=== PATIENT | male | born 1940 | race Caucasian/White ===

== ENCOUNTER 2019-02-20 15:37 | Inpatient (IN) | payer OTHER ==
[~2019-02-20] VITALS: Ht 190.5 cm; Wt 110.9 kg
[~2019-02-20 15:37] MED LIST: PRED5 PO; Triamcinolone A15 G3 TOP; VOLTAREN100 GM TOP
[2019-02-20 16:33] LABS: BASOPHILS ABSOLUTE AUTO 0.18 K/mm3 (0.00-0.23); BASOPHILS PERCENT AUTO 1 % (0-2); EOSINOPHILS ABSOLUTE AUTO 4.54 K/mm3 (0.00-0.68); EOSINOPHILS PERCENT AUTO 28 % (0-6); Hemoglobin 15.5 g/dL (13.5-17.5); IMMATURE GRAN ABSOLUTE AUTO 0.17 K/mm3 (0.00-0.10); IMMATURE GRAN PERCENT AUTO 1 % (0-1); LYMPHOCYTES ABSOLUTE AUTO 1.41 K/mm3 (0.84-5.20); LYMPHOCYTES PERCENT AUTO 9 % (21-46); MONOCYTES ABSOLUTE AUTO 0.98 K/mm3 (0.16-1.47); MONOCYTES PERCENT AUTO 6 % (4-13); Mean Corpuscular Volume 91 fL (80-100); Mean Platelet Volume 10.5 fL (9.1-12.4); NEUTROPHILS ABSOLUTE AUTO 9.19 K/mm3 (1.96-9.15); NEUTROPHILS PERCENT AUTO 56 % (41-73); Platelet Count 240 K/mm3 (150-400); RDW Coefficient Variation 13.1 % (11.7-14.2); RDW Standard Deviation 43.8 fL (35.1-46.3); Red Blood Cell Count 5.16 M/mm3 (4.30-5.90); White Blood Cell Count 16.47 K/mm3 (4.00-11.30)
[2019-02-20 17:02] LABS: Alanine Aminotransfer (ALT/SGP 43 U/L (12-78); Albumin, Blood 3.6 g/dL (3.4-5.0); Albumin/Globulin Ratio 1.1 (0.8-1.8); Alk Phos 88 U/L (50-136); Anion Gap 5 mmol/L (6-16); Aspartate Aminotrans (AST/SGOT 16 U/L (12-37); Bilirubin, Total 0.5 mg/dL (0.1-1.0); Blood Urea Nitrogen 20 mg/dL (8-24); Bun/Creatinine Ratio 25.6 (12.0-20.0); CO2, Blood 27 mmol/L (21-32); Calcium, Blood 11.4 mg/dL (8.5-10.1); Chloride, Blood 103 mmol/L (98-108); Creatinine, Blood 0.78 mg/dL (0.60-1.20); Globulin, Blood 3.2 g/dL (2.2-4.0); Glomerular Filtration Rate >60 (60-); Glucose, Blood 233 mg/dL (70-99); Potassium, Blood 4.1 mmol/L (3.5-5.5); Sodium, Blood 135 mmol/L (136-145); Total Protein, Blood 6.8 g/dL (6.4-8.2); Troponin I 0.197 ng/mL (0.000-0.040)
[2019-02-20 18:12] LABS: International Normalized Ratio 1.04
[2019-02-20] MEDS ORDERED: METF500 PO (18:17)
[2019-02-20] MEDS ORDERED: MELO7.5 PO (18:17)
[2019-02-20] MEDS ORDERED: ALBU90OI6 INH (18:18)
[2019-02-20] MEDS ORDERED: HYDCHL25 PO (18:19)
[2019-02-20] MEDS ORDERED: LOSARTAN-HCTZ1 EAC1 PO (18:19)
[2019-02-20] MEDS ORDERED: TAMS.4ER PO (18:20)
[2019-02-20] MEDS ORDERED: ATOR40TA PO (18:20)
[2019-02-20] MEDS ORDERED: AMLO5 PO (18:20)
[2019-02-20] MEDS ORDERED: GLIP10 PO (18:21)
[2019-02-20] MEDS ORDERED: Aspir 8181 MG PO (18:23)
[2019-02-20] MEDS ORDERED: QVAR REDIHALE10.6 G1 INH (18:25)
[2019-02-20] MEDS ORDERED: TIOT18 INH (18:25)
[2019-02-20] MEDS ORDERED: THERA1 EACH PO (18:47)
[2019-02-20] MEDS ORDERED: GLUCOSAMINE/CHONDROI PO (18:48)
--- NOTE | 2019-02-21 05:07 | NUR ---
[facility] FLOORPERSON SUMMARY NEW ADMIT FROM THE ED THIS SHIFT. PT AAOX4 AND PLEASANT. ADMITTED FOR INCREASED SOB OVER LAST FEW WEEKS. NEW DX OF CHF. PT LUNG SOUNDS COARSE IN BASES HOWEVER PT SATTING IN 90'S ON ROOM AIR. GIVEN 20 MG IV LASIX WHEN PT ARRIVED TO ROOM. PT HAS HAD GOOD URINE OUTPUT CLOSE TO 1L THUS FAR. TELEMETRY REPORTS NSR IN 60-70'S WITH NO ACUTE CHANGES. PT TO HAVE ECHO LATER TODAY AND A CONSULT WITH DR BRICEÑO HAS BEEN CALLED IN. VSS, WILL CONTINUE TO MONITOR.
[2019-02-21 05:27] LABS: BASOPHILS PERCENT AUTO 1 % (0-2); EOSINOPHILS ABSOLUTE AUTO 4.92 K/mm3 (0.00-0.68); EOSINOPHILS PERCENT AUTO 30 % (0-6); Hematocrit 45.1 % (37.0-53.0); Hemoglobin 15.2 g/dL (13.5-17.5); IMMATURE GRAN ABSOLUTE AUTO 0.24 K/mm3 (0.00-0.10); IMMATURE GRAN PERCENT AUTO 2 % (0-1); LYMPHOCYTES ABSOLUTE AUTO 2.03 K/mm3 (0.84-5.20); LYMPHOCYTES PERCENT AUTO 12 % (21-46); MONOCYTES ABSOLUTE AUTO 1.17 K/mm3 (0.16-1.47); MONOCYTES PERCENT AUTO 7 % (4-13); Mean Corpuscular HGB 30.4 pg (26.0-34.0); Mean Corpuscular HGB Conc 33.7 g/dL (31.5-36.5); Mean Corpuscular Volume 90 fL (80-100); Mean Platelet Volume 9.7 fL (9.1-12.4); NEUTROPHILS PERCENT AUTO 48 % (41-73); Platelet Count 213 K/mm3 (150-400); RDW Coefficient Variation 13.1 % (11.7-14.2); White Blood Cell Count 16.36 K/mm3 (4.00-11.30)
[2019-02-21 05:45] LABS: Anion Gap 8 mmol/L (6-16); Blood Urea Nitrogen 21 mg/dL (8-24); Bun/Creatinine Ratio 27.3 (12.0-20.0); CO2, Blood 27 mmol/L (21-32); Calcium, Blood 11.3 mg/dL (8.5-10.1); Chloride, Blood 103 mmol/L (98-108); Creatinine, Blood 0.77 mg/dL (0.60-1.20); Glomerular Filtration Rate >60 (60-); Glucose, Blood 197 mg/dL (70-99); Potassium, Blood 3.9 mmol/L (3.5-5.5); Sodium, Blood 138 mmol/L (136-145)
--- NOTE | 2019-02-21 08:55 | NUR ---
DR BARNHART IN TO SEE PT.
--- NOTE | 2019-02-21 09:03 | NUR ---
NOTIFIED DR. MONDRAGON'S OFFICE OF CONSULT
--- NOTE | 2019-02-21 09:51 | NUR ---
DR MARMOLEJO IN TO SEE PT.
--- NOTE | 2019-02-21 12:27 | NUR ---
PT TO [facility]. SPOUSE AT BEDSIDE.
--- NOTE | 2019-02-21 12:59 | NUR ---
GAVE REPORT TO U3 NURSE.
--- NOTE | 2019-02-21 13:50 | NUR ---
INITIAL ASSESSMENT PATIENT ARRIVED TO UNIT FROM [facility] AT 1335. PATIENT ALERT AND ORIENTED X 4, AFEBRILE. PATIENT TLINGIT & HAIDA. PATIENT DENIES PAIN OR DISCOMFORT. PATIENT SATTING 90% AND GREATER ON RA. LUNGS CLEAR IN UPPER LOBES. LLL DIMINISHED, WHEEZE NOTED IN RLL. PATIENT REPORTS THAT HE HAS BEEN HAVING DRY COUGH. PATIENT IN SB, HR IN THE 50S. BP STABLE. TRACE EDEMA NOTED TO BLES. GI WNL. WNL. CATH ACCESS SITE TO R RADIAL. TR BAND IN PLACE WITH 11 CC AIR INSTILLED. NO BLEEDING, BRUISING, HEMATOMA NOTED. HEPARIN INFUSING AT 15 UNITS/ KG/ HOUR. PATIENT ORIENTED TO UNIT, ROOM AND CALL SYSTEM. BED LOW, CALL LIGHT IN REACH. WILL CONTINUE TO MONITOR PATIENT FREQUENTLY THROUGHOUT SHIFT.
--- NOTE | 2019-02-21 14:48 | NUR ---
DR. GARCIA DIS IN UNIT AND IN PATIENT ROOM SPEAKING WITH PATIENT AND FAMILY. FAX SHEET SENT SHORT TIME AGO. PATIENT AND UPDATED ON PATIENT CONDITION AND THAT PATIENT WILL BE TRANSPORTED TO [facility] IN [place] WHEN A BED IS AVAILABLE.
--- NOTE | 2019-02-21 16:09 | NUR ---
SHIFT SUMMARY PATIENT REMAINED UNCHANGED WHILE IN UNIT. VITAL SIGNS REMAINED STABLE. TR BAND REMAINED IN PLACE WITH THE [address] REMAINED AT BEDSIDE. PATIENT TRANSPORTED OUT OF UNIT BY REACH AT 1609 TO BE AIR LIFTED TO [facility] FOR CABG.
== END 2019-02-21 16:09 | disposition short-term general hospital (02) | DRG 282 ==
LOC: ER 15:37 → MEDS 20:20 → PCU 02-21 12:25 → ICUW 02-21 13:40
PROVIDERS: Emergency Medicine; Physician Assistant; ADMIT Hospitalist
PROC: B2111ZZ Fluoroscopy of Multiple Coronary Arteries using Low Osmolar Contrast (ICD-10-PCS; principal; 2019-02-21)
DX: I21.4 Non-ST elevation (NSTEMI) myocardial infarction (principal); J44.9 Chronic obstructive pulmonary disease, unspecified; Z99.81 Dependence on supplemental oxygen; I10 Essential (primary) hypertension; E78.5 Hyperlipidemia, unspecified; E66.9 Obesity, unspecified; N40.0 Benign prostatic hyperplasia without lower urinary tract symptoms; Z87.891 Personal history of nicotine dependence; Z68.32 Body mass index [BMI] 32.0-32.9, adult; I44.4 Left anterior fascicular block; I25.10 Atherosclerotic heart disease of native coronary artery without angina pectoris; E11.51 Type 2 diabetes mellitus with diabetic peripheral angiopathy without gangrene; R59.1 Generalized enlarged lymph nodes; Z79.82 Long term (current) use of aspirin; Z79.84 Long term (current) use of oral hypoglycemic drugs
CPT/HCPCS: 36415; 71046; 71260; 80048; 80053; 82947; 83880; 84484; 85025; 85060; 85610; 85730; 93005; 93010; 93306; 93454; 96365; 99152; 99153; 99285-25; A9270; C1769; C1894; J1644; J1885; J1940; J2250; J3010; J7030; J7040; Q9967